=== PATIENT | female | born 1985 | race American Indian/Alaskan Native ===

== ENCOUNTER 2021-12-28 14:52 | Emergency (ER) | payer MEDICAID ==
[2021-12-28] MEDS ORDERED: ONDANSETRON 4 MG ODT TAB PO ONE ×2 (16:12→20:16)
[2021-12-28] MEDS ORDERED: MORPHINE 4 MG/1 ML INJ IM ONE (16:12)
--- NOTE | 2021-12-28 16:50 | Emergency Department Report ---
ED Female HPI - General Chief complaint: Vaginal Bleeding Stated complaint: VAGINAL BLEEDING Source: patient, EMS Mode of arrival: Stretcher Limitations: No Limitations - History of Present Illness Initial comments: Patient is a 36-year-old -[place] female with a history of hypertension, chronic iron deficiency anemia, chronic uterine fibroids and recurrent severe dy smenorrhea presents to the ED with complaint of acute onset persistent diffuse low abdominal pain and vaginal bleeding for the last 4 days. Patient states that the bleeding is from her menstrual cycle and that she usually experiences severe dysmenorrhea with her cycle. Patient states that her cycles are also usually present with heavy bleeding. Patient states that she is scheduled for partial hysterectomy in January 2022 by her [facility] TECHNOLOGIST physician in [facility]. Patient denies lightheadedness, dizziness, syncope, chest pain, shortness of breath, urinary frequency and urgency, change in vision, headache, back pain or vaginal discharge. MD Complaint: vaginal bleeding, pelvic pain, other (history of chronic fibroids) -: Gradual, year(s) (2) Location: suprapubic, other (vaginal) Radiation: non-radiating Severity: severe Severity scale (0 -10): 8 Quality: cramping, sharp Consistency: constant Improves with: none Worsens with: none Are you Now?: No Associated Symptoms: denies other symptoms, abdominal pain. denies: vaginal discharge, vaginal bleeding, nausea/vomiting, fever/chills, headaches, loss of appetite, dysuria, hematuria, rash, shortness of breath, syncope, weakness - Related Data Sexually active: Yes Previous Rx's Medication Instructions Recorded Last Taken Type Ferrous Sulfate [Ferrous Sulfate 324 mg PO DAILY #60 tab 12/28/21 Unknown Rx 324 MG] Lisinopril/Hydrochlorothiazide 1 tab PO QDAY #60 tab 12/28/21 Unknown Rx [Zestoretic 20-12.5 mg] Ondansetron [Zofran Odt] 4 mg PO Q8HR PRN #20 tab.rapdis 12/28/21 Unknown Rx cephALEXin [Keflex] 500 mg PO Q6HR #40 capsule 12/28/21 Unknown Rx traMADoL [Ultram] 50 mg PO Q6HR PRN #20 tablet 12/28/21 Unknown Rx Allergies Allergy/AdvReac Type Severity Reaction Status Date / Time acetaminophen [From Tylenol] AdvReac Angioedema Verified 12/28/21 15:04 ibuprofen AdvReac Angioedema Verified 12/28/21 15:04 ED Review of Systems ROS: Stated complaint: VAGINAL BLEEDING Other details as noted in HPI Constitutional: denies: chills, fever Eyes: denies: eye pain, eye discharge, vision change ENT: denies: ear pain, throat pain Respiratory: denies: cough, shortness of breath, wheezing Cardiovascular: denies: chest pain, palpitations Endocrine: no symptoms reported Gastrointestinal: abdominal pain (diffuse lower), nausea. denies: diarrhea Genitourinary: abnormal menses (vaginal bleeding). denies: urgency, dysuria, discharge Musculoskeletal: denies: back pain, joint swelling, arthralgia Skin: denies: rash, lesions Neurological: denies: headache, weakness, paresthesias Psychiatric: denies: anxiety, depression Hematological/Lymphatic: denies: easy bleeding, easy bruising ED Past Medical Hx - Past Medical History Previous Medical History?: Yes Hx Hypertension: Yes Additional medical history: anemia - Social History Smoking Status: Never Smoker Substance Use Type: None - Medications Home Medications: Home Medications Medication Instructions Recorded Confirmed Last Taken Type Ferrous Sulfate [Ferrous Sulfate 324 mg PO DAILY #60 tab 12/28/21 Unknown Rx 324 MG] Lisinopril/Hydrochlorothiazide 1 tab PO QDAY #60 tab 12/28/21 Unknown Rx [Zestoretic 20-12.5 mg] Ondansetron [Zofran Odt] 4 mg PO Q8HR PRN #20 tab.rapdis 12/28/21 Unknown Rx cephALEXin [Keflex] 500 mg PO Q6HR #40 capsule 12/28/21 Unknown Rx traMADoL [Ultram] 50 mg PO Q6HR PRN #20 tablet 12/28/21 Unknown Rx ED Physical Exam - General Limitations: No Limitations General appearance: alert, in no apparent distress - Head Head exam: Present: atraumatic, normocephalic, normal inspection - Eye Eye exam: Present: normal appearance, PERRL, EOMI Pupils: Present: normal accommodation - ENT ENT exam: Present: normal exam, normal orophraynx, mucous membranes moist, TM's normal bilaterally, normal external ear exam - Neck Neck exam: Present: normal inspection, full ROM. Absent: meningismus - Respiratory Respiratory exam: Present: normal lung sounds bilaterally. Absent: respiratory distress, wheezes, rales, rhonchi, chest wall tenderness, accessory muscle use, decreased breath sounds, prolonged expiratory - Cardiovascular Cardiovascular Exam: Present: regular rate, normal rhythm, normal heart sounds. Absent: systolic murmur, diastolic murmur, rubs, gallop - GI/Abdominal GI/Abdominal exam: Present: soft, tenderness (palpable diffuse lower abdominal tenderness), normal bowel sounds. Absent: guarding, rebound, hyperactive bowel sounds, hypoactive bowel sounds, organomegaly, bruit, hernia - Extremities Exam Extremities exam: Present: normal inspection, full ROM, normal capillary refill. Absent: tenderness - Back Exam Back exam: Present: normal inspection, full ROM. Absent: tenderness, CVA tenderness (R), CVA tenderness (L), muscle spasm, vertebral tenderness - Neurological Exam Neurological exam: Present: alert, oriented X3, CN II-XII intact, normal gait, reflexes normal - Psychiatric Psychiatric exam: Present: normal affect, normal mood - Skin Skin exam: Present: warm, dry, intact, normal color. Absent: rash ED Course Vital Signs 12/28/21 12/28/21 12/28/21 15:01 15:35 21:28 Temperature 97.9 F Pulse Rate 98 H 103 H Respiratory 18 18 19 Rate Blood Pressure Blood Pressure 118/88 [Left] O2 Sat by Pulse 99 99 100 Oximetry 12/28/21 12/28/21 12/28/21 21:30 21:46 22:00 Temperature Pulse Rate 98 H 103 H 100 H Respiratory 14 21 27 H Rate Blood Pressure 131/65 116/70 Blood Pressure [Left] O2 Sat by Pulse 100 99 100 Oximetry 12/28/21 12/28/21 12/28/21 22:16 22:30 22:45 Temperature Pulse Rate 87 94 H 101 H Respiratory 19 23 25 H Rate Blood Pressure 137/68 136/69 148/80 Blood Pressure [Left] O2 Sat by Pulse 100 100 100 Oximetry 12/28/21 12/28/21 12/28/21 23:02 23:16 23:17 Temperature 98.1 F 98.2 F Pulse Rate Respiratory Rate Blood Pressure 136/69 125/64 Blood Pressure [Left] O2 Sat by Pulse 90 100 Oximetry 12/28/21 12/28/21 12/29/21 23:30 23:46 00:00 Temperature Pulse Rate Respiratory Rate Blood Pressure 131/58 124/55 148/80 Blood Pressure [Left] O2 Sat by Pulse 100 100 100 Oximetry 12/29/21 12/29/21 12/29/21 00:16 00:30 00:46 Temperature Pulse Rate Respiratory Rate Blood Pressure 126/50 116/50 130/57 Blood Pressure [Left] O2 Sat by Pulse 100 100 100 Oximetry 12/29/21 12/29/21 12/29/21 01:00 01:16 01:30 Temperature Pulse Rate Respiratory Rate Blood Pressure 119/51 129/58 117/56 Blood Pressure [Left] O2 Sat by Pulse 100 100 99 Oximetry 12/29/21 01:46 Temperature Pulse Rate Respiratory Rate Blood Pressure 126/59 Blood Pressure [Left] O2 Sat by Pulse 100 Oximetry - Reevaluation(s) Reevaluation #1: 12/28/21 20:34 I paged and discussed the patient's case with the INTERVENTIONAL TECHNOLOGIST physician on-call Dr. Randle who agreed with the plan of care to transfuse the patient in the ED with 2 units of packed red blood cells and discharged home to follow-up with Dr. Sonia bone's in his office in the next 5 to 7 days. ED Medical Decision Making - Lab Data Result diagrams: 12/28/21 16:58 12/28/21 16:58 - Medical Decision Making This is a 36-year-old -[place] female with a history of hypertension, chronic iron deficiency anemia, chronic uterine fibroids and recurrent severe dysmenorrhea presents to the ED with complaint of acute onset persistent diffuse low abdominal pain and vaginal bleeding for the last 4 days. Patient states that the bleeding is from her menstrual cycle and that she usually experiences severe dysmenorrhea with her cycle. Patient states that her cycles are also usually present with heavy bleeding. Patient states that she is scheduled for partial hysterectomy in January 2022 by her INTERVENTIONAL TECHNOLOGIST physician in [facility]. In the ED, patient is alert and oriented x3 and is not in any distress. Patient is hemodynamically stable. Patient was treated for pain in the ED. Lab test results were reviewed and showed mild leukocytosis of 11,600, H&H of 6.5 and 21 respectively, and urinalysis showed significant urinary tract infection. Patient also received Rocephin 1 g IV x1, LR 1 L IV bolus x1 and also received transfusion with 2 units of packed red blood cells. I paged and discussed the patient's case with the INTERVENTIONAL TECHNOLOGIST physician on-call Dr. Randle who agreed the plan of care to transfuse the patient in the ED with 2 units of packed red blood cells and 2 have the patient follow-up with his office in 5 to 7 days for reevaluation. Patient care was transferred to ESTELA Nowak at shift change who shall reevaluate the patient and discharge patient home to follow-up with INTER[employer]IONAL TECHNOLOGIST physician. - Differential Diagnosis Chronic anemia; dysmenorrhea; UTI; uterine fibroids Critical care attestation.: If time is entered above; I have spent that time in minutes in the direct care of this critically ill patient, excluding procedure time. ED Disposition Clinical Impression: Acute bilateral lower abdominal pain, Severe dysmenorrhea, Acute urinary tract infection, Iron deficiency anemia due to chronic blood loss Uterine fibroid Qualifiers: Uterine leiomyoma location: unspecified location Qualified Code(s): D25.9 - Leiomyoma of uterus, unspecified Disposition: 01 HOME / SELF CARE / HOMELESS Is pt being admited?: No Does the pt Need Aspirin: No Condition: Stable Instructions: Uterine Fibroids, [id number], Urinary Tract Infection, Adult, [id number], Abdominal Pain, Adult, [id number], Dysmenorrhea, [id number] Additional Instructions: All lab test results were reviewed and are all nonactionable except for urinary tract infection in urinalysis and hemoglobin of 6.5 and hematocrit of 21.0 consistent with your chronic iron deficiency anemia due to chronic blood loss from your regular menstrual cycle. Therefore take medication as needed for pain, take the antibiotics and follow-up with the INTERVENTIONAL TECHNOLOGIST physician Dr. Randle in 5 to 7 days for reevaluation or return to the ED immediately if symptoms get worse. Contact Dr. Randle's office in 2 to 3 days to schedule a follow-up appointment. Prescriptions: Ferrous Sulfate [Ferrous Sulfate 324 MG] 324 mg PO DAILY #60 tab cephALEXin [Keflex] 500 mg PO Q6HR #40 capsule traMADoL [Ultram] 50 mg PO Q6HR PRN #20 tablet PRN Reason: Pain Lisinopril/Hydrochlorothiazide [Zestoretic 20-12.5 mg] 1 tab PO QDAY #60 tab Ondansetron [Zofran Odt] 4 mg PO Q8HR PRN #20 tab.rapdis PRN Reason: Nausea Referrals: RANJANA RANDLE MD [Staff Physician] - 3-5 Days Time of Disposition: 20:30 Print Language: LITHUANIAN
[2021-12-28 17:16] LABS: Hemoglobin 6.5 gm/dl (10.1-14.3); Mean Corpuscular HGB Conc 31 % (30-34); Mean Corpuscular Volume 73 fl (79-97); Platelet Count 320 K/mm3 (140-440); Red Blood Count 2.89 M/mm3 (3.65-5.03); Red Cell Distribution Width 17.6 % (13.2-15.2)
[2021-12-28 17:36] LABS: Alanine Aminotransferase 6 units/L (7-56); Albumin 3.4 g/dL (3.9-5); BUN/Creatinine Ratio 18; Blood Urea Nitrogen 11 mg/dL (7-17); Calcium 8.4 mg/dL (8.4-10.2); Hemolysis Index 2
[2021-12-28 17:58] LABS: Anisocytosis 1+; Basophils % (Manual) 0 % (0.0-1.8); Eosinophils % (Manual) 0 % (0.0-4.3); Hypochromasia 2+; Ovalocytes 1+; Tear Drop Cells Few; Total Cells Counted 100
[2021-12-28 17:59] LABS: Poikilocytosis 2+; Schistocytes Rare; Target Cells Few
[2021-12-28 18:00] LABS: Platelet Estimate Consistent w Auto
[2021-12-28 19:53] LABS: Color,Urine Red (Yellow)
[2021-12-28 19:54] LABS: Bilirubin,Urine Negative (Negative); Blood,Urine Large (Negative); Protein,Urine >500 mg/dL (Negative); RBC,Urine > 182.0 /HPF (0.0-6.0)
[2021-12-28] MEDS ORDERED: cefTRIAXone/NS 1 GM/50 ML 1 GM/50 ML BAG IV ONE (20:14)
[2021-12-28] MEDS ORDERED: traMADol 50 MG TAB PO ONE (20:15)
[2021-12-28] MEDS ORDERED: SODIUM CHLORIDE 0.9% 500 ML 500 ML IV ONE (20:18)
[2021-12-28] MEDS ORDERED: LACTATED RINGERS 1,000 ML IV ONE (20:19)
[2021-12-28] MEDS ORDERED: diphenhydrAMINE 50 MG/ML VIAL IV ONE (20:37)
[2021-12-28] MEDS ORDERED: ONDANSETRON 4 MG/2 ML INJ IV ONE (21:30)
[2021-12-28] MEDS ORDERED: fentaNYL 100 MCG/2 ML INJ IV ONE (21:30)
[2021-12-28] MEDS ORDERED: ONDANSETRON 4 MG/2 ML INJ ONE (21:31)
[2021-12-28] MEDS ORDERED: MORPHINE 4 MG/1 ML INJ ONE (21:31)
[2021-12-29 01:50] VITALS: BP 126/59
== END 2021-12-29 05:03 | disposition home or self-care (01) ==
LOC: ED 14:52
DX: N94.6 Dysmenorrhea, unspecified (principal); D25.9 Leiomyoma of uterus, unspecified; N39.0 Urinary tract infection, site not specified; D50.9 Iron deficiency anemia, unspecified; R10.31 Right lower quadrant pain; R10.32 Left lower quadrant pain
CPT/HCPCS: 36415; 36430; 80053; 81001; 84703; 85007; 85025; 86850; 86900; 86901; 86920; 87086; 96365; 96372; 96375; 99284; J0696; J1200; J2270; J2405; J3010; J7040; J7120; P9016; J3490; Q0162